=== PATIENT | female | born 1950 | race Caucasian/White ===

== ENCOUNTER 2020-05-26 15:34 | Emergency (ER) | payer OTHER | END 2020-05-26 17:20 | disposition home or self-care (01) | LOC: ER1 15:34 | DX: S61.012A Laceration without foreign body of left thumb without damage to nail, initial encounter (principal); W26.0XXA Contact with knife, initial encounter; Y92.009 Unspecified place in unspecified non-institutional (private) residence as the place of occurrence of the external cause | CPT/HCPCS: 12001; 99282 ==